=== PATIENT | female | born 1980 | race Asian ===

== ENCOUNTER 2018-06-15 13:39 | Emergency (ER) | payer BC ==
--- NOTE | 2018-06-15 15:54 | UC ---
Nausea/Vomiting/Diarrhea HPI - HPI Summary HPI Summary: 37-year-old female presents with complaints of 2 day history of nausea and vomiting. States she gets some mild abdominal discomfort prior to having emesis which is then relieved after she vomits. States today she is started with a generalized headache. Patient states that for several months she's been getting intermittent episodes of vomiting and headache but has not been evaluated for this. She is concerned that it may be related to a food allergy. Denies fever, chills, sore throat, abdominal pain, back or flank pain, diarrhea, dysuria, frequency, urgency, or hematuria. She is currently having her menses. - History of Current Complaint Chief Complaint: UCGI Stated Complaint: LEDESMA/VOMITING/NAUSEA Time Seen by Provider: 06/15/18 15:33 Hx Obtained From: Patient Hx Last Menstrual Period: current Pain Intensity: 10 - Allergies/Home Medications Allergies/Adverse Reactions: Allergies Allergy/AdvReac Type Severity Reaction Status Date / Time clams Allergy Difficulty Verified 06/15/18 15:37 Breathing Home Medications: Home Medications Ibuprofen TAB* [Advil TAB*] 400 mg PO Q6H PRN 06/15/18 [History Confirmed ] PMH/Surg Hx/FS Hx/Imm Hx Previously Healthy: Yes - Denies significant PMH - Surgical History Surgical History: None - Family History Known Family History: Positive: Non-Contributory - Social History Occupation: Employed Full-time Lives: With Family Alcohol Use: Rare Substance Use Type: None Smoking Status (MU): Never Smoked Tobacco Review of Systems All Other Systems Reviewed And Are Negative: Yes Constitutional: Negative: Fever, Chills ENT: Negative: Sore Throat Respiratory: Negative: Shortness Of Breath, Cough Cardiovascular: Negative: Palpitations, Chest Pain Gastrointestinal: Positive: Vomiting, Nausea. Negative: Abdominal Pain, Diarrhea Genitourinary: Negative: Dysuria, Hematuria, Frequency, Urgency Musculoskeletal: Positive: Negative Neurological: Positive: Negative Is Patient Immunocompromised?: No Physical Exam - Summary Physical Exam Summary: GENERAL APPEARANCE: Well developed, well nourished, alert and cooperative, and appears to be in no acute distress. CARDIAC: Normal S1 and S2. No S3, S4 or murmurs. Rhythm is regular. There is no peripheral edema, cyanosis or pallor. Extremities are warm and well perfused. Capillary refill is less than 2 seconds. Peripheral pulses intact. LUNGS: Clear to auscultation without rales, rhonchi, wheezing or diminished breath sounds. ABDOMEN: Positive bowel sounds. Soft, nondistended, nontender. No guarding or rebound. No masses or hepatosplenomegally. No CVA tenderness. MUSKULOSKELETAL: ROM intact to all extremities. No joint erythema or tenderness. Normal muscular development. Normal gait. SKIN: Skin normal color, texture and turgor with no lesions or eruptions. Triage Information Reviewed: Yes Vital Signs: Initial Vital Signs Temp 98.1 F 06/15/18 15:38 Pulse 70 06/15/18 15:38 Resp 18 06/15/18 15:38 BP 100/69 06/15/18 15:38 Pulse Ox 99 06/15/18 15:38 Vital Signs Reviewed: Yes Re-Evaluation - Re-Evaluation First Eval Re-Evaluation Time: 16:50 Change: Improved Comment: Patient states nausea subsided after receiving ondansetron and has been able to drink fluids with no further nausea or vomiting. She just received the naproxen for her headache therefore it is unchanged but she states she feels well enough to go home and resume oral rehydration. Naus/Vom/Diarrhea Course/Dx - Course Course Of Treatment: 37-year-old female presents with complaints of 2 day history of nausea and vomiting. States she gets some mild abdominal discomfort prior to having emesis which is then relieved after she vomits. States today she is started with a generalized headache. Patient states that for several months she's been getting intermittent episodes of vomiting and headache but has not been evaluated for this. She is concerned that it may be related to a food allergy. Denies fever, chills, sore throat, abdominal pain, back or flank pain, diarrhea, dysuria, frequency, urgency, or hematuria. She is currently having her menses. Afebrile. Vital signs stable. Exam was overall unremarkable. Discussed treatment options with patient including IV fluids with IV antiemetics and pain medication however patient would prefer to take oral medications and attempt oral rehydration at this time. She was given ondansetron 8 mg by mouth for the nausea and naproxen 500 mg by mouth for her headache. She reported her nausea was improved and she was able to take oral fluids without any nausea or vomiting. States her headache had not improved much however she had just received her medication prior to reevaluation. Discussed with patient that her symptoms could represent a viral gastroenteritis although with her recurrent episodes of headache and vomiting I cannot rule out the possibility of another cause such as migraines. I have provided her with contact information for the [facility] physician referral service to assist her with a setting up with a primary care provider and also given her a referral to gastroenterology if she needs follow-up for her recurrent nausea and vomiting. Anticipatory guidance of warning symptoms reviewed with the patient. Verbalized understanding and agrees with plan of care. - Differential Dx/Diagnosis Differential Diagnoses - Female: Gastroenteritis (Viral), Gastroenteritis ( Bacterial), Vomiting, Diarrhea, Gastritis, Other - Migraine Provider Diagnosis: Nausea & vomiting, Headache Condition At Discharge: Stable Discharge - Sign-Out/Discharge Documenting (check all that apply): Patient Departure All imaging exams completed and their final reports reviewed: No Studies - Discharge Plan Condition: Stable Disposition: HOME Prescriptions: Ondansetron ODT TAB* [Zofran 4 MG Odt TAB*] 4 mg PO Q8H PRN #9 tab.odt PRN Reason: Nausea/Vomiting Patient Education Materials: Acute Nausea and Vomiting (ED) Forms: *Work Release Referrals: No Primary Care Phys,NOPCP [Primary Care Provider] - [facility] PH[facility]ICIAN REFERRAL [Outside] Remberto Moura MD [Medical Doctor] - (Call for appointment.) Additional Instructions: Take ondansetron 4 mg every 8 hours as needed for nausea or vomiting. Drink plenty of fluids. Try to drink small amounts frequently to avoid filling your stomach to full which can cause vomiting. If you are still having vomiting, start with a clear liquid diet including soup broths, Jello, popsicles, and jayy-homa with carbonation stirred out of it. You may then advance to a bland diet including saltine crackers, toast, bananas , rice, and applesauce. Then return to a normal diet as tolerated. I have given you a referral to gastroenterology to follow up on your recurrent episodes of nausea and vomiting. Call for an appointment. I have also given you the contact information for the [facility] physician referral service to assist you with establishing with a primary care provider.. Seek immediate medical attention in the emergency room if you develop fever greater than 100.5 F, have severe abdominal pain, persistent vomiting, blood in your vomit or stool, or any worsening of symptoms. - Billing Disposition and Condition Condition: STABLE Disposition: Home
[2018-06-15] MEDS ORDERED: Ondansetron ODT TAB* 4 MG PO ONE (16:03)
[2018-06-15] MEDS ORDERED: Naproxen TAB* 250 MG PO ONE (16:03)
== END 2018-06-15 17:06 | disposition home or self-care (01) ==
LOC: EDBD → UCCORT 13:39
DX: R11.2 Nausea with vomiting, unspecified (principal); R51 Headache
CPT/HCPCS: 99202; A9270-GY; G0463